=== PATIENT | female | born 1950 | race Two or more races ===

== ENCOUNTER 2021-04-23 12:30 | Inpatient (IN) | payer OTHER ==
[~2021-04-23] VITALS: Ht 152.4 cm; Wt 56.2 kg
[2021-04-23] MEDS ORDERED: CARDIZEM CD180 M1 PO (15:15)
[2021-04-23] MEDS ORDERED: AVAPRO150 MG PO (15:16)
[2021-04-23] MEDS ORDERED: CRESTOR5 MG PO (15:16)
[2021-04-26] MEDS ORDERED: ESOMEPRAZOLE MA40 MG (11:16)
[2021-04-26] MEDS ORDERED: FLONASE16 GM (11:17)
[2021-04-26] MEDS ORDERED: CLOTRIMAZOLE-BE15 G1 (11:17)
[2021-04-26] MEDS ORDERED: LORATADINE10 MG (11:17)
== END 2021-04-27 11:39 | disposition home or self-care (01) | DRG 743 ==
LOC: OB/GYN 04-26 06:05 → O/R 04-26 06:05 → SURH 04-26 10:45 → OB/GYN 04-26 15:25
PROVIDERS: ADMIT Obstetrics & Gynecology Gynecologic Oncology; ATTEND Obstetrics & Gynecology Gynecologic Oncology
PROC: 0UT24ZZ Resection of Bilateral Ovaries, Percutaneous Endoscopic Approach (ICD-10-PCS; 2021-04-26)
PROC: 0UT74ZZ Resection of Bilateral Fallopian Tubes, Percutaneous Endoscopic Approach (ICD-10-PCS; 2021-04-26)
PROC: 07BC4ZZ Excision of Pelvis Lymphatic, Percutaneous Endoscopic Approach (ICD-10-PCS; 2021-04-26)
PROC: 0UT94ZZ Resection of Uterus, Percutaneous Endoscopic Approach (ICD-10-PCS; principal; 2021-04-26 10:45)
DX: D26.0 Other benign neoplasm of cervix uteri (principal); N80.0 Endometriosis of uterus; N73.6 Female pelvic peritoneal adhesions (postinfective); D36.0 Benign neoplasm of lymph nodes; N83.292 Other ovarian cyst, left side; N94.89 Other specified conditions associated with female genital organs and menstrual cycle; N88.8 Other specified noninflammatory disorders of cervix uteri; I10 Essential (primary) hypertension; E78.00 Pure hypercholesterolemia, unspecified